=== PATIENT | female | born 1970 | race Caucasian/White ===

== ENCOUNTER 2017-06-04 14:36 | Emergency (ER) | payer OTHER ==
[~2017-06-04] VITALS: Ht 170.2 cm; Wt 90.1 kg
[2017-06-04 14:48] VITALS: BP 125/72; PULSE 72; RESP 15; O2SAT 100
--- NOTE | 2017-06-04 15:31 | ED.REPORT ---
HPI-Back Pain 40 and Over Date of Service Jun 04, 2017 ED Provider: Dr. Keating Pt is a generally healthy 46 y/o female presenting to the ED c/o intermittent right flank pain onset 1.5 weeks ago. She has been experiencing intermittent right flank pain 4/10 at current time and 8/10 at worst for the past 1.5 weeks. She denies hematuria, abdominal pain, fever, any other symptoms. Pain is not exacerbated by movement and not relived with Advil. She has no PCP. Nursing Notes Stated Complaint: RIGHT SIDE PAIN Chief Complaint: Back Pain or Injury Nursing Notes Reviewed: Yes Allergies: Coded Allergies: Sulfa (Sulfonamide Antibiotics) (Verified Allergy, Intermediate, Hives, ) Scheduled Levothyroxine (Levothyroxine) 150 Mcg Tablet 150 MCG PO DAILY Scheduled PRN Cyclobenzaprine (Cyclobenzaprine) 10 Mg Tablet 10 MG PO TID PRN PRN Spasm Naproxen (Naproxen) 500 Mg Tab 500 MG PO BID PRN PRN For Pain Miscellaneous Medications Lactobacillus Combination No.4 (Probiotic) 1 Each Capsule 1 EACH PO Liothyronine Sodium (Cytomel) 5 Mcg Tablet 5 MCG PO General Time Seen by MD: 15:31 Chief Complaint Flank pain right Hx Obtained From: Patient Arrived By: Walk-in Sudden in Onset?: No Onset Occurred: More than a week ago... (2 weeks) Symptom Duration: Intermittent Location: : Flank right Quality: Painful Radiation: : Does not radiate Severity: Current: Moderate Severity: Maximum: Moderate Recent Healthcare: No recent hospitalization Similar Sx Previous: No Past Medical History Past Medical History Hypothyroid Hx stage II melanoma s/p removal Past Surgical History Appendectomy 2000 Melanoma removal Total knee replacement Smoking History Unknown if Ever Smoker Ambulatory Status Independent Review of Systems Constitutional: Denies: Chills, Fever GI: Denies: Abdominal pain Female: Reports: Flank pain, Denies: Hematuria Complete sys rev & neg: except as marked. Physical Exam Initial Vital Signs Vital Signs (First) Date Time Temp Pulse Resp B/P Pulse Ox O2 Delivery O2 Flow Rate FiO2 06/04/17 14:48 37.2 72 15 125/72 100 Room Air Initial VS: Reviewed, Vital signs normal Head / Eyes: Atraumatic, Normocephalic ENT: Mucous membranes moist, Conjunctiva normal Neck: Supple, Full range of motion Extremities: Vascular intact, Neuro intact, No swelling Skin: Warm, Dry, No cyanosis Psychiatric: Mood/affect normal, Behavior normal, Normal thought content General/Constitutional: Awake, Alert, No acute distress, Well appearing, Cooperative, Not toxic appearing Respiratory / Chest: Breath sounds NL, Breath sounds = bilat, No respiratory distress, No rales, No rhonchi, No wheezing Cardiovascular: Heart rate NL, Regular rhythm, Heart sounds NL, No murmurs, Peripheral circulation NL Abdomen: Atraumatic, Soft, Non-tender, No guarding, No rebound, No distention, No palpable mass Back: Atraumatic, Full range of motion, Painless range of motion Non-reproducible right flank pain, no tenderness to palpation Neurologic: Oriented X3, Speech NL, No motor deficits, No sensory deficits, CN II - XII intact, Cerebellar NL, Memory NL Interpretation & Diagnostics Interpretation & Diagnostics: CT KUB IMPRESSION: 1. Cause of right-sided flank pain is not identified. 2. Gallbladder is contracted. Kidneys are considered within normal limits. Uterus and ovaries are considered within normal limits. Vascular clips within acute previous appendectomy. No hernias or obstruction or inflammatory changes are seen. Dictated by: Juan Love M.D. on 06/04/2017 at 18:07 Approved by: Juan Love M.D. on 06/04/2017 at 18:11 Lab Results Interpretation Test 06/04/17 15:53 Urine Color Straw (YELLOW) Urine Appearance Clear (CLEAR,HAZY) Urine pH 5.5 (5.0-8.0) Urine Specific Straughn 1.005 (1.003-1.035) Urine Protein Negativemg/dL (NEG,TRACE) Urine Glucose (UA) Negativemg/dL (NEGATIVE) Urine Ketones Negativemg/dL (NEGATIVE) Urine Occult Blood Negative (NEGATIVE) Urine Nitrite Negative (NEGATIVE) Urine Bilirubin Negative (NEGATIVE) Urine Urobilinogen Normalmg/dL (NORMAL) Urine Leukocyte Esterase Trace (NEGATIVE) Urine RBC 0-2/hpf (0-2) Urine WBC 0-5/hpf (0-5) Urine Epithelial Cells Few/hpf (NONE-MOD) Urine Crystals None seen (NONE SEEN) Urine Bacteria Few/hpf (NONE-FEW) Urine Hyaline Casts None/lpf (NONE) Urine Granular Casts None seen (NONE SEEN) Urine Waxy Casts None seen (NONE SEEN) Urine Red Blood Cell Casts None seen (NONE SEEN) Urine White Blood Cell Casts None seen (NONE SEEN) Urine Mucus None seen (None Seen) Urine Trichomonas None seen (NONE SEEN) Urine Yeast None (NONE SEEN) Urinalysis Comment None Urine Culture Reflexed Indicated Re-Eval/Medical Decision Med Decision/Clinical Course 46-year-old with a history of hypothyroidism presents with right flank pain that she is confident it is not related to muscles. Her UA is negative for pyuria or hematuria making pyelonephritis and nephrolithiasis/ureterolithiasis unlikely. Despite my reassurance with a UA patient was quite concerned and was highly in favor of imaging. CT KUB showed no acute abnormalities and no explanation for her pain. Patient was reassured by this and she will follow up with her new PCP later this week for a recheck. She was given in August of 2 different primary care clinics as she currently does not have a primary care provider. I also advised that she take naproxen and cyclobenzaprine to help with her pain as I do believe it is musculoskeletal in nature Re-Evaluation/Progress #1: Time of Eval: 17:29 Re-Evaluation/Progress Note: Pt rechecked. 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 She would like a CT scan to evaluate for kidney stones. Re-Evaluation/Progress #2: Re-Evaluation/Progress Note: CT results discussed with patient who is reassured. Counseled Regarding: Diagnosis, Lab results, Need for follow-up, When/why to return to ED Discharge & Departure Impression: Primary Impression: Back strain Encounter type: initial encounter Qualified Code: S39.012A - Strain of muscle, fascia and tendon of lower back, initial encounter Ruled Out: Pyelonephritis, Kidney stone Disposition: Home Discharge Condition All VS Reviewed: Yes Condition: Stable Patient Instructions: Low Back Strain (ED) Additional Instructions: The urine showed no signs of infection or presence of blood. This makes UTI, kidney infection, and kidney stone very unlikely. The CT performed today shows no obvious abnormality. I suspect your pain is musculoskeletal. Take Naproxen as directed for pain. You can also use cyclobenzaprine as needed for muscle spasm. Return to the emergency department if you experience worsening or severe pain, fever, vomiting, abdominal pain, or for other concerning symptoms. Follow-up with a primary care doctor in 1 week if symptoms persist. The [facility] or [facility] would be happy to see you. Referrals: [facility] Scribe Attestation Portions of this note were transcribed by Jose Armando Tucker. I, Dr. Keating personally performed the history, physical exam and medical decision-making; I reviewed and confirmed the accuracy of the information in the transcribed note. Jonathan Keating DO Jun 04, 2017 15:31 JOSE ARMANDO TUCKER Jun 04, 2017 15:48
[2017-06-04] MEDS ORDERED: LACT1CAP67 PO (16:04)
[2017-06-04] MEDS ORDERED: LIOT5TAB6 PO (16:04)
[2017-06-04] MEDS ORDERED: LEVO150T5 PO (16:04)
[2017-06-04 16:18] LABS: APPEARANCE,URINE CLEAR (CLEAR,HAZY); COLOR,URINE STRAW (YELLOW); OCCULT BLOOD,URINE NEGATIVE (NEGATIVE); PH,URINE 5.5 (5.0-8.0); UROBILINOGEN,URINE NORMAL (NORMAL)
--- NOTE | 2017-06-04 18:13 | DRSVH ---
PROCEDURE: CT KUB ([id number]) INDICATIONS: RIGHT FLANK PAIN TECHNIQUE: Noncontrast 5 mm thick sections acquired from the diaphragms to the symphysis. 5 mm thick coronal an d sagittal reformats were then performed. For radiation dose reduction, the following was used: aut omated exposure control, adjustment of mA and/or kV according to patient size. COMPARISON: None. FINDINGS: Image quality: Excellent. Lung bases: Lung bases are clear. Heart size is normal. Urinary system: Both kidneys are normal in size. No kidney stones. No hydronephrosis or perinephri c fat stranding. Both ureters appear non-dilated throughout their expected courses. Bladder wall th ickness is normal; no calcified bladder stones. Other solid organs: Liver and spleen are normal in size. Gallbladder appears contracted. Pancreas is normal in contours. No adrenal nodules. Peritoneum and bowel: Unenhanced bowel loops demonstrate normal wall thickness and caliber. No free fluid or air. Vascular clips are seen Athe tip of the cecum consistent with previous appendectomy. Nodes and vessels: No retroperitoneal or mesenteric adenopathy by size criteria. Aorta and inferior vena cava are normal in caliber. Abdominal wall: No ventral hernias. Pelvis: No free pelvic fluid. No inguinal hernias or adenopathy. Uterus and ovaries are considered within normal limits. Bones: No suspicious bony lesions. No vertebral body compression fractures. IMPRESSION: 1. Cause of right-sided flank pain is not identified. 2. Gallbladder is contracted. Kidneys are considered within normal limits. Uterus and ovaries are con sidered within normal limits. Vascular clips within acute previous appendectomy. No hernias or obstru ction or inflammatory changes are seen. Dictated by: Juan Love M.D. on 06/04/2017 at 18:07 Approved by: Juan Love M.D. on 06/04/2017 at 18:11
[2017-06-04] MEDS ORDERED: NPR500T PO (18:39)
[2017-06-04] MEDS ORDERED: CYCL10TA9 PO (18:39)
[2017-06-04 19:06] VITALS: BP 120/64; PULSE 74; RESP 14; O2SAT 100
== END 2017-06-04 19:02 | disposition home or self-care (01) ==
LOC: SED 14:36
DX: S39.012A Strain of muscle, fascia and tendon of lower back, initial encounter (principal); R10.9 Unspecified abdominal pain; Z79.2 Long term (current) use of antibiotics; E03.9 Hypothyroidism, unspecified; Z98.890 Other specified postprocedural states; X58.XXXA Exposure to other specified factors, initial encounter; Y93.89 Activity, other specified; Y99.8 Other external cause status; Y92.9 Unspecified place or not applicable; Z88.2 Allergy status to sulfonamides
CPT/HCPCS: 74176; 81000; 81025; 87086; 87088; 96372; 99285; J1885